=== PATIENT | male | born 1985 | race Hispanic/Latino ===

== ENCOUNTER 2022-04-06 11:52 | Emergency (ER) | payer SELFPAY ==
--- NOTE | 2022-04-06 11:58 | ED_ITS ---
HPI - Extremity Problem General Stated complaint: Right hand Pain Related Data Home Medications Medication Instructions Recorded Confirmed No Home Medications 04/06/22 04/06/22 Allergies Allergy/AdvReac Type Severity Reaction Status Date / Time No Known Allergies Allergy Verified 04/06/22 11:58 Discharge Plan Discharge Follow-up/Referrals: PHYSICIAN,[employer] COMPONENTS INSPECTOR [Primary Care Provider] -
[2022-04-06 12:09] VITALS: BP 141/83; PULSE 65; RESP 16; TEMP 36.5; O2SAT 99
--- NOTE | 2022-04-06 12:14 | ED.WOUNDLAC ---
HPI - Wound/Laceration General Chief Complaint: Extremity Injury, Upper Stated Complaint: Right hand Pain Time Seen by Provider: 04/06/22 12:17 Source: patient and RN notes reviewed Mode of arrival: ambulatory Limitations: no limitations History of Present Illness HPI narrative: 36-year-old male presents with concern for laceration to the palmar aspect of the right hand. Reports 1 hour ago he was working with aluminum when he sliced his hand. He is not up-to-date on his tetanus, however he declines a tetanus shot today. He denies decree sensation, strength, range of motion in the hand or digits. Reports he cleaned the wound prior to arrival Related Data Home Medications Medication Instructions Recorded Confirmed No Home Medications 04/06/22 04/06/22 Allergies Allergy/AdvReac Type Severity Reaction Status Date / Time No Known Allergies Allergy Verified 04/06/22 11:58 Review of Systems Review of Systems: CONSTITUTIONAL: Denies malaise, chills, sweats, or fever. SKIN: Reports laceration to the palmar right hand MUSCULOSKELETAL: Denies muscle skeletal pain NEUROLOGIC: Denies numbness, weakness All systems reviewed & are unremarkable except as noted in HPI and below PMFSH Comments At time of signature, agree with nursing past medical, surgical, social and family history. There is no relevant family history pertinent to the presenting complaint Exam Narrative: GENERAL: Well-appearing, well-nourished, and in no acute distress. HEAD: Normocephalic EYES: PERRLA, conjunctivae clear NECK: Supple. CHEST: Speaks in full sentences. No respiratory distress. HEART: Regular rate and rhythm. Normal and equal peripheral pulses. EXTREMITIES: Right hand and digits of hand have normal strength and sensation. 5/5 strength with digit flexion, extension. Range of motion normal. No clubbing, cyanosis, or edema noted. No tenderness. Normal digital cascade with flexion of fingers, median, ulnar and radial nerve intact. Normal sensation of each side of finger. Can perform 'okay' sign, 'cross over finger test of index and middle fingers' and 'thumbs up' sign. No scissoring. Normal thumb opposition. Good capillary refill and radial pulse. Distal capillary refill less than 3 seconds. Patient is right/left hand dominant SKIN: Warn, dry, intact, pink. 5 cm linear laceration through the dermis, not involving subcutaneous tissue noted to the palmar aspect of the right hand beneath digit 1 NEURO: Alert and oriented x3. PSYCH: Normal mood and affect Course Course Emergency Course: Wound explored for foreign body and copious irrigation provided with no evidence of FB. Discussed the potential of retained foreign body with the patient and signs/symptoms that should prompt the patient to immediately go to the ED for reevaluation. The laceration was identified to be 5 cm in length and located at palmar aspect of the right hand. The laceration was cleansed with [employer] and no debris was noted. . The laceration was then irrigated with 500cc of high-pressure irrigation. The wound was explored and no foreign bodies were found. There was no evidence of tendon or nerve lacerations. The wound was closed with Dermabond. Anticipatory guidance was provided. Patient refused tetanus prophylaxis Level of Care: Express Care Visit Vital Signs Vital signs: Vital Signs Temperature 97.7 F 04/06/22 12:09 Pulse Rate 65 04/06/22 12:09 Respiratory Rate 16 04/06/22 12:09 Blood Pressure 141/83 H 04/06/22 12:09 Pulse Oximetry 99 04/06/22 12:09 Oxygen Delivery Room Air 04/06/22 12:09 Temperature 97.7 F 04/06/22 12:09 Pulse Rate 65 04/06/22 12:09 Respiratory Rate 16 04/06/22 12:09 Blood Pressure 141/83 H 04/06/22 12:09 Pulse Oximetry 99 04/06/22 12:09 Oxygen Delivery Room Air 04/06/22 12:09 Reviewed. Procedures Laceration Laceration 1: Date: 04/06/22 Time: 12:18 Site: hand Size (cm): 5
== END 2022-04-06 12:32 | disposition home or self-care (01) ==
PROVIDERS: Emergency Provider Nurse Practitioner
DX: S61.411A Laceration without foreign body of right hand, initial encounter (principal); W45.8XXA Other foreign body or object entering through skin, initial encounter
CPT/HCPCS: 12002; 99202; G0463